=== PATIENT | male | born 1990 | race Caucasian/White ===

== ENCOUNTER 2019-09-20 15:36 | Emergency (ER) | payer OTHER ==
[~2019-09-20] VITALS: Ht 167.6 cm; Wt 70.3 kg
[2019-09-20] MEDS ORDERED: CIPROFLOXIN HC2.5 M1 OPHTHALMIC (16:37)
[2019-09-20 16:43] VITALS: BP 121/70
== END 2019-09-20 16:43 | disposition home or self-care (01) ==
LOC: M.ERS 15:36
DX: H10.33 Unspecified acute conjunctivitis, bilateral (principal); B96.89 Other specified bacterial agents as the cause of diseases classified elsewhere; Z76.0 Encounter for issue of repeat prescription; F17.210 Nicotine dependence, cigarettes, uncomplicated

== ENCOUNTER 2020-03-08 21:18 | Emergency (ER) | payer OTHER ==
[~2020-03-08] VITALS: Ht 167.6 cm; Wt 68.0 kg
[~2020-03-08 21:18] MED LIST: CIPROFLOXIN HC2.5 M1 OPHTHALMIC
[2020-03-08] MEDS ORDERED: HYDROCODON-ACE1 EAC7 PO (23:31)
[2020-03-08] MEDS ORDERED: AUGMENTIN 875-1 EACH PO (23:31)
[2020-03-08] MEDS ORDERED: IBU600 MG PO (23:31)
[2020-03-08] MEDS ORDERED: ZOFRAN ODT4 MG PO (23:31)
[2020-03-09] VITALS: BP 147/82
== END 2020-03-09 | disposition home or self-care (01) ==
LOC: M.ERS 21:18
DX: S02.69XA Fracture of mandible of other specified site, initial encounter for closed fracture (principal); H11.32 Conjunctival hemorrhage, left eye; Y08.89XA Assault by other specified means, initial encounter; Y93.89 Activity, other specified; Y92.89 Other specified places as the place of occurrence of the external cause; Y99.8 Other external cause status

== ENCOUNTER 2020-05-11 17:13 | Emergency (ER) | payer OTHER ==
[~2020-05-11] VITALS: Ht 170.2 cm; Wt 68.0 kg
[~2020-05-11 17:13] MED LIST changes: +AUGMENTIN 875-1 EACH PO; +HYDROCODON-ACE1 EAC7 PO; +IBU600 MG PO; +ZOFRAN ODT4 MG PO
[2020-05-11 18:00] LABS: ABSOLUTE BASOPHILS 0.1 thou/uL (0.0-0.2); ABSOLUTE EOSINOPHILS 0.1 thou/uL (0.0-0.7); ABSOLUTE LYMPHOCYTES 3.3 thou/uL (0.8-5.3); ABSOLUTE MONOCYTES 0.6 thou/uL (0.0-1.2); ABSOLUTE NEUTROPHILS 4.9 thou/uL (1.6-8.1); BASOPHILS 0.8 %; EOSINOPHILS 1.1 %; HEMATOCRIT 43.2 % (42.0-52.0); HEMOGLOBIN 14.6 gm/dL (14.0-18.0); LYMPHOCYTES 36.7 %; MCH 30.2 pg (26.0-34.0); MCHC 33.8 g/dL (28.0-37.0); MCV 89.5 fL (80.0-100.0); MONOCYTES 6.3 %; MPV 7.2 fl. (7.2-11.1); NUCLEATED RBCS 0 /100WBC; PLATELET COUNT* 307 thou/uL (150-400); POLYS 55.1 %; RBC 4.83 mil/uL (4.50-6.00); RDW-CV 13.6 % (10.5-14.5); WBC 8.9 thou/uL (4.0-11.0)
[2020-05-11 18:06] LABS: CALCIUM 9.4 mg/dL (8.5-10.1); CREATININE 1.1 mg/dL (0.6-1.3); POTASSIUM 3.6 mmol/L (3.5-5.1)
[2020-05-11 18:08] LABS: URINE BILIRUBIN NEGATIVE (Negative); URINE BLOOD NEGATIVE (Negative); URINE CLARITY CLEAR; URINE COLOR YELLOW; URINE GLUCOSE-RANDOM NEGATIVE (Negative); URINE KETONES NEGATIVE (Negative); URINE LEUKOCYTES-REFLEX NEGATIVE (Negative); URINE NITRITE-REFLEX NEGATIVE (Negative); URINE PROTEIN NEGATIVE (Negative); URINE UROBILINOGEN 0.2 E.U./dl (0.2-1.0)
[2020-05-11 18:11] LABS: ALBUMIN 3.8 g/dL (3.4-5.0); TOTAL BILIRUBIN 0.2 mg/dL (<0.1-1.0); TOTAL PROTEIN 7.3 g/dL (6.4-8.2)
[2020-05-11] MEDS ORDERED: NAPROSYN500 MG PO (19:16)
[2020-05-11 19:31] VITALS: BP 116/71
== END 2020-05-11 19:32 | disposition home or self-care (01) ==
LOC: M.ERS 17:13
PROVIDERS: Physician Assistant
DX: R59.0 Localized enlarged lymph nodes (principal); R10.32 Left lower quadrant pain